=== PATIENT | female | born 1940 | race Caucasian/White ===

== ENCOUNTER 2017-03-07 13:56 | Emergency (ER) | payer MEDICARE, BC ==
[2014-12-17 11:00] VITALS: BMI 40.1
[~2017-03-07 13:56] MED LIST: BAYER CHEWABLE81 MG PO; FLAGYL500 MG PO; GEMFIBROZIL600 MG PO; GLIMEPIRIDE4 MG PO; GLUCOPHAGE500 MG PO; HYDROCODONE-APA1 TAB PO; IBUPROFEN800 MG PO; INVOKANA300 MG PO; LIBRIUM 10 MG C10 MG PO; LISINOPRIL2.5 MG PO; PEPCID40 MG PO; PRAVACHOL40 MG PO; SYNTHROID75 MCG PO; TOPROL XL50 MG PO
== END 2017-03-07 17:32 | disposition home or self-care (01) ==
LOC: D.ER 13:56
DX: S20.219A Contusion of unspecified front wall of thorax, initial encounter (principal); V43.52XA Car driver injured in collision with other type car in traffic accident, initial encounter; Y93.89 Activity, other specified; Y92.410 Unspecified street and highway as the place of occurrence of the external cause; S06.0X0A Concussion without loss of consciousness, initial encounter; S16.1XXA Strain of muscle, fascia and tendon at neck level, initial encounter; E11.9 Type 2 diabetes mellitus without complications; I10 Essential (primary) hypertension

== ENCOUNTER → 2017-03-15 13:51 | Outpatient (CLI) | payer MEDICARE, BC ==
[2014-12-17 11:00] VITALS: BMI 40.1
== END | disposition home or self-care (01) ==
LOC: D.RAD 13:51
DX: M79.602 Pain in left arm (principal)

== ENCOUNTER → 2017-03-28 09:12 | Outpatient (CLI) | payer MEDICARE, BC ==
[2014-12-17 11:00] VITALS: BMI 40.1
== END | disposition home or self-care (01) ==
LOC: D.CT 03-25 16:00
DX: R22.1 Localized swelling, mass and lump, neck (principal)

== ENCOUNTER → 2017-05-09 16:15 | Outpatient (CLI) | payer MEDICARE, BC ==
[2014-12-17 11:00] VITALS: BMI 40.1
== END | disposition home or self-care (01) ==
LOC: D.RAD 16:15
DX: J98.9 Respiratory disorder, unspecified (principal)

== ENCOUNTER → 2017-06-25 14:33 | Outpatient (CLI) | payer MEDICARE, BC ==
[2014-12-17 11:00] VITALS: BMI 40.1
== END | disposition home or self-care (01) ==
LOC: D.RAD 14:33
DX: J98.9 Respiratory disorder, unspecified (principal)

== ENCOUNTER → 2017-09-23 15:29 | Outpatient (CLI) | payer MEDICARE, BC ==
[2014-12-17 11:00] VITALS: BMI 40.1
== END | disposition home or self-care (01) ==
LOC: D.RAD 15:29
DX: R05 Cough (principal)

== ENCOUNTER → 2018-08-29 12:08 | Outpatient (CLI) | payer MEDICARE, BC ==
[2014-12-17 11:00] VITALS: BMI 40.1
== END | disposition home or self-care (01) ==
LOC: D.RAD 12:08
DX: M54.17 Radiculopathy, lumbosacral region (principal)

== ENCOUNTER → 2018-12-15 17:13 | Outpatient (CLI) | payer MEDICARE, BC ==
[2014-12-17 11:00] VITALS: BMI 40.1
== END | disposition home or self-care (01) ==
LOC: D.RAD 17:13
PROVIDERS: ATTEND Emergency Medicine
DX: J45.901 Unspecified asthma with (acute) exacerbation (principal)

== ENCOUNTER → 2018-12-24 14:02 | Outpatient (CLI) | payer MEDICARE, BC ==
[2014-12-17 11:00] VITALS: BMI 40.1
== END | disposition home or self-care (01) ==
LOC: D.RT 14:02
PROVIDERS: ATTEND Internal Medicine Pulmonary Disease
DX: J44.9 Chronic obstructive pulmonary disease, unspecified (principal)

== ENCOUNTER → 2019-02-17 14:46 | Outpatient (CLI) | payer MEDICARE, BC ==
[2014-12-17 11:00] VITALS: BMI 40.1
== END | disposition home or self-care (01) ==
LOC: D.RAD 14:46
PROVIDERS: ATTEND Emergency Medicine
DX: R05 Cough (principal)